=== PATIENT | female | born 1990 | race Caucasian/White ===

== ENCOUNTER 2016-10-26 06:24 | Emergency (ER) | payer OTHER ==
[~2016-10-26] VITALS: Ht 165.1 cm; Wt 64.9 kg
[~2016-10-26 06:24] MED LIST: ALBUAER19 INH; SERT-234 PO; SERT50TA PO; WLLSR150 PO
[2016-10-26 06:31] VITALS: TEMP 36.3; Ht 165.1 cm; Wt 64.9 kg
[2016-10-26] MEDS ORDERED: ONDANSETRON INJ 2 MG/ML 2 ML VIAL ONE (06:36)
[2016-10-26] MEDS ORDERED: ONDANSETRON INJ 2 MG/ML 2 ML VIAL IV STA (06:39)
[2016-10-26] MEDS ORDERED: SODIUM CHLORIDE 0.9% 1000ML 1,000 ML IV STA (06:39)
[2016-10-26] MEDS ORDERED: HYDROmorphone INJ 1 MG/ML SYR IV STA (06:39)
--- NOTE | 2016-10-26 06:52 | EMERGENCY ROOM VISIT NOTE ---
History Report prepared by Chani: Wagner Chacko Under the Supervision of: Dr. Gaston Torres M.D. First contact with patient: 06:35 Chief Complaint: FLANK PAIN Stated Complaint: EXTREME SIDE PAIN History of Present Illness The patient is a 26 year old female who presents to the Emergency Room with complaints of persistent left flank pain starting morning. The patient has a history of kidney stones but notes that her current pain is worse than she has experienced in the past. The patient also complains of nausea. The onset of her pain was sudden and her pain is currently rated 10/10 in severity. Source of History: patient Onset: this morning Position: back (left flank) Symptom Intensity: 10/10 Timing: other (persistent) Associated Symptoms: + nausea Review of Systems See HPI for pertinent positives & negatives. A total of 10 systems reviewed and were otherwise negative. Past Medical & Surgical Medical Problems: (1) Chr Ethmoidal Sinusitis (2) Hx-Penicillin Allergy (3) Urin Tract Infection Nos Family History No significant family history Social History Smoking Status: Never Smoker Alcohol Use: none Marital Status: single Housing Status: lives with family Occupation Status: employed Current/Historical Medications Scheduled Albuterol Hfa (Ventolin Hfa), 2 PUFFS INH Q4H Bupropion HCl (Bupropion HCl Sr), 150 MG PO BID Tamsulosin Hcl (Flomax), 0.4 MG PO DAILY Scheduled PRN Oxycodone/Acetaminophen 5MG/325MG (Percocet 5MG/325MG), 1-2 TAB PO Q4H PRN for Pain Allergies Coded Allergies: Penicillins (Verified Allergy, Unknown, 10/26/16) Physical Exam Vital Signs Date Time Temp Pulse Resp B/P Pulse Ox O2 Delivery O2 Flow Rate FiO2 10/26/16 10:00 75 122/79 98 10/26/16 07:33 69 18 129/88 96 Room Air 10/26/16 06:31 36.3 73 20 143/99 96 Room Air Physical Exam GENERAL: Patient is a healthy-appearing well-nourished HEAD: Normocephalic atraumatic EYES: Ocular movements intact pupils equal and react to light OROPHARYNX mucous membranes are moist no exudates present no erythema or edema present NECK: Supple no nuchal rigidity CHEST: Good equal expansion LUNGS: Clear and equal to auscultation CARDIAC: Normal S1 and S2 ABDOMEN: Soft nontender no guarding. Benign abdomen. BACK: No CVA tenderness EXTREMITIES: No pain upon palpation normal muscle strength in all groups no clubbing cyanosis or edema NEURO: Patient is following commands is answering questions appropriately. Alert and oriented x3 Cranial Nerves 2-12 grossly intact Medical Decision & Procedures ER Provider Diagnostic Interpretation: CT results as stated below per my review and radiologist interpretation: CT OF THE ABDOMEN AND PELVIS WITHOUT CONTRAST, STONE PROTOCOL CLINICAL HISTORY: Left sided back pain. Left flank pain. COMPARISON STUDY: CT of the abdomen August 11, [address] of the abdomen and pelvis May 07, 2006. TECHNIQUE: Helical axial images of the abdomen and pelvis were obtained without IV or oral contrast according to renal stone protocol. FINDINGS: Lung bases are clear. There is mild left hydroureteronephrosis. The course of the left ureter is difficult to follow but this is likely due to a 4 mm distal left ureteral calculus. There are multiple bilateral renal calculi that measure up to 4 mm. There is no right sided collecting system dilatation. Unenhanced images of the liver, spleen, adrenal glands and pancreas are normal. There is no evidence for a bowel obstruction. The appendix is normal. There is no adenopathy. No suspicious skeletal lesions are identified. IMPRESSION: 1. Mild left hydroureteronephrosis due to a 4 mm distal left ureteral calculus. 2. Bilateral nephrolithiasis. Electronically signed by: Moshe Villanueva M.D. 10/26/2016 7:52 AM Dictated Date/Time: 10/26/2016 7:47 AM Laboratory Results 10/26/16 06:40 Red Blood Count 4.41, Mean Corpuscular Volume 93.4, Mean Corpuscular Hemoglobin 32.7, Mean Corpuscular Hemoglobin Concent 35.0, Mean Platelet Volume 9.9, Neutrophils (%) (Auto) 60.4, Lymphocytes (%) (Auto) 28.9, Monocytes (%) (Auto) 8.4, Eosinophils (%) (Auto) 1.8, Basophils (%) (Auto) 0.4, Neutrophils # (Auto) 5.79, Lymphocytes # (Auto) 2.77, Monocytes # (Auto) 0.80, Eosinophils # (Auto) 0.17, Basophils # (Auto) 0.04 10/26/16 06:40 Test 10/26/16 06:40 10/26/16 08:40 White Blood Count 9.58 K/uL (4.8-10.8) Red Blood Count 4.41 M/uL (4.2-5.4) Hemoglobin 14.4 g/dL (12.0-16.0) Hematocrit 41.2 % (37-47) Mean Corpuscular Volume 93.4 fL (80-100) Mean Corpuscular Hemoglobin 32.7 pg (25-34) Mean Corpuscular Hemoglobin Concent 35.0 g/dl (32-36) Platelet Count 362 K/uL (130-400) Mean Platelet Volume 9.9 fL (7.4-10.4) Neutrophils (%) (Auto) 60.4 % Lymphocytes (%) (Auto) 28.9 % Monocytes (%) (Auto) 8.4 % Eosinophils (%) (Auto) 1.8 % Basophils (%) (Auto) 0.4 % Neutrophils # (Auto) 5.79 K/uL (1.4-6.5) Lymphocytes # (Auto) 2.77 K/uL (1.2-3.4) Monocytes # (Auto) 0.80 K/uL (0.11-0.59) Eosinophils # (Auto) 0.17 K/uL (0-0.5) Basophils # (Auto) 0.04 K/uL (0-0.2) RDW Standard Deviation 43.7 fL (36.4-46.3) RDW Coefficient of Variation 12.7 % (11.5-14.5) Immature Granulocyte % (Auto) 0.1 % Immature Granulocyte # (Auto) 0.01 K/uL (0.00-0.02) Anion Gap 9.0 mmol/L (3-11) Est Creatinine Clear Calc Drug Dose 78.1 ml/min Estimated GFR () 91.3 Estimated GFR (Non- 78.8 BUN/Creatinine Ratio 15.2 (10-20) Calcium Level 8.8 mg/dl (8.5-10.1) Total Bilirubin 0.4 mg/dl (0.2-1) Direct Bilirubin < 0.1 mg/dl (0-0.2) Aspartate Amino Transf (AST/SGOT) 13 U/L (15-37) Alanine Aminotransferase (ALT/SGPT) 20 U/L (12-78) Alkaline Phosphatase 46 U/L (45-117) Total Protein 6.7 gm/dl (6.4-8.2) Albumin 3.6 gm/dl (3.4-5.0) Lipase 95 U/L (73-393) Urine Color YELLOW Urine Appearance CLEAR (CLEAR) Urine pH 6.5 (4.5-7.5) Urine Specific [place] 1.015 (1.000-1.030) Urine Protein NEG (NEG) Urine Glucose (UA) NEG (NEG) Urine Ketones NEG (NEG) Urine Occult Blood 3+ (NEG) Urine Nitrite NEG (NEG) Urine Bilirubin NEG (NEG) Urine Urobilinogen NEG (NEG) Urine Leukocyte Esterase SMALL (NEG) Urine WBC (Auto) 1-5 /hpf (0-5) Urine RBC (Auto) >30 /hpf (0-4) Urine Hyaline Casts (Auto) 1-5 /lpf (0-5) Urine Epithelial Cells (Auto) >30 /lpf (0-5) Urine Bacteria (Auto) 1+ (NEG) Urine Renal Epithelial Cells 0-5 /lpf (0-5) Urine Test NEG (NEG) Labs reviewed by ED physician. Medications Administered Medications (Trade) Dose Ordered Sig/Nina Route Start Time Stop Time Status Last Admin Dose Admin Sodium Chloride (Nss 1000ml) 1,000 ml @ 999 mls/hr Q1H1M STAT IV 10/26/16 06:39 10/26/16 07:39 DC 10/26/16 06:43 999 MLS/HR Hydromorphone HCl (Dilaudid Inj) 1 mg NOW STAT IV 10/26/16 06:39 10/26/16 06:41 DC 10/26/16 06:43 1 MG Ondansetron HCl (Zofran Inj) 4 mg NOW STAT IV 10/26/16 06:39 10/26/16 06:41 DC 10/26/16 06:43 4 MG Tamsulosin HCl (Flomax Cap) 0.4 mg NOW ONCE PO 10/26/16 07:30 10/26/16 07:31 DC 10/26/16 07:32 0.4 MG Hydromorphone HCl (Dilaudid Inj) 0.5 mg NOW STAT IV 10/26/16 08:01 10/26/16 08:03 DC 10/26/16 08:25 0.5 MG Metoclopramide HCl (Reglan Inj) 10 mg NOW STAT IV 10/26/16 08:01 10/26/16 08:03 DC 10/26/16 08:24 10 MG Ketorolac Tromethamine (Toradol Inj) 30 mg NOW STAT IV 10/26/16 08:01 10/26/16 08:03 DC 10/26/16 08:22 30 MG Diphenhydramine HCl (Benadryl Inj) 50 mg STK-MED ONCE .ROUTE 10/26/16 08:31 10/26/16 08:34 DC 10/26/16 08:38 25 MG ED Course 0638: Past medical records reviewed. The patient was evaluated in room B2. A complete history and physical examination was performed. 0639: Zofran 4 mg IV, Dilaudid 1 mg IV, NSS 1000 ml @ 999 mls/hr. 0718: The patient is much more comfortable. 0730: Flomax 0.4 mg PO. 0801: Toradol 30 mg IV, Reglan 10 mg IV, Dilaudid 0.5 mg IV. 0905: Reassessed the pateint. I discussed results and treatment plan with the patient. She verbalizes agreement and understanding. The patient is ready for discharge. Medical Decision Prior records/ancillary studies reviewed. Triage Nursing notes reviewed. The patient's history was concerning for abdominal pain. Differential diagnosis: Etiologies such as appendicitis, diverticulitis, PUD, biliary pathology, UTI, pancreatitis, obstruction, mesenteric ischemia, aortic pathology, infections, inflammatory bowel disease, renal colic, as well as others were entertained. This is a 26-year-old female who presents emergency department vomiting and in distress. The patient has a kidney stone on CAT scan. For this reason IV was established, patient given normal saline bolus, Dilaudid, Zofran and she was also given Flomax based on the size of the stone 4 mm patient be safely discharged home for follow-up with urology. Repeat examination revealed improvement patient's symptoms. The patient was in agreement with the treatment plan. Impression Primary Impression: Kidney stone Scribe Attestation The scribe's documentation has been prepared under my direction and personally reviewed by me in its entirety. I confirm that the note above accurately reflects all work, treatment, procedures, and medical decision making performed by me. Departure Information Dispostion Home / Self-Care Prescriptions Tamsulosin Hcl (FLOMAX) 0.4 Mg Cap 0.4 MG PO DAILY for 10 Days, #10 CAP Prov: Gaston Torres MD 10/26/16 Oxycodone/Acetaminophen 5MG/325MG (PERCOCET 5MG/325MG) Tab 1-2 TAB PO Q4H Y for Pain, #14 TAB Prov: Gaston Torres MD 10/26/16 Referrals Brielle Jackson D.O. (PCP) Forms HOME CARE DOCUMENTATION FORM, IMPORTANT VISIT INFORMATION, School Instructions, Work Instructions Patient Instructions Kidney Stones - [facility], Kidney Stones Eval, Kidney Stones Expectant Therapy, Kidney Stones Prevent, Kidney Stones Risk, My [facility] Additional Instructions Take 600 mg Ibuprofen every 6 hours Take Percocet for breakthrough pain You have been examined and treated today on an emergency basis only. This is not a substitute for, or an effort to provide, complete comprehensive medical care. It is impossible to recognize and treat all injuries or illnesses in a single emergency department visit. It is therefore important that you follow up closely with [facility]. Call as soon as possible for an appointment. Thank you for your time and consideration. I look forward to speaking with you again soon. Please don't hesitate to call us if you have any questions.
[2016-10-26 06:57] LABS: BASO % 0.4 %; BASO ABS # 0.04 K/uL (0-0.2); COMPLETE YES; EOS % 1.8 %; HEMATOCRIT 41.2 % (37-47); IG% 0.1 %; LYMPH % 28.9 %; LYMPH ABS # 2.77 K/uL (1.2-3.4); MEAN CELL VOLUME 93.4 fL (80-100); MEAN CORPUSCULAR HEMOGLOBIN 32.7 pg (25-34); MEAN PLATELET VOLUME 9.9 fL (7.4-10.4); MONO % 8.4 %; NEUT % 60.4 %; PLATELET COUNT 362 K/uL (130-400); RED BLOOD COUNT 4.41 M/uL (4.2-5.4); WHITE BLOOD COUNT 9.58 K/uL (4.8-10.8)
[2016-10-26 07:16] LABS: ALT/SGPT 20 U/L (12-78); BLOOD UREA NITROGEN 15 mg/dl (7-18); BUN/CREATININE RATIO 15.2 (10-20); CALCIUM 8.8 mg/dl (8.5-10.1); CARBON DIOXIDE 25 mmol/L (21-32); CHLORIDE 108 mmol/L (98-107); GLUCOSE 103 mg/dl (70-99); POTASSIUM 3.8 mmol/L (3.5-5.1); SODIUM 142 mmol/L (136-145)
[2016-10-26 07:19] LABS: ALKALINE PHOSPHATASE 46 U/L (45-117); AST/SGOT 13 U/L (15-37)
[2016-10-26] MEDS ORDERED: VNTHFA/IN INH (07:28)
[2016-10-26] MEDS ORDERED: TAMSULOSIN HCL 0.4 MG CAP PO ONE (07:30)
--- NOTE | 2016-10-26 07:53 | DIAGNOSTIC IMAGING REPORT ---
CT OF THE ABDOMEN AND PELVIS WITHOUT CONTRAST, STONE PROTOCOL CLINICAL HISTORY: Left sided back pain. Left flank pain. COMPARISON STUDY: CT of the abdomen August 11, [address] of the abdomen and pelvis May 07, 2006. TECHNIQUE: Helical axial images of the abdomen and pelvis were obtained without IV or oral contrast according to renal stone protocol. FINDINGS: Lung bases are clear. There is mild left hydroureteronephrosis. The course of the left ureter is difficult to follow but this is likely due to a 4 mm distal left ureteral calculus. There are multiple bilateral renal calculi that measure up to 4 mm. There is no right sided collecting system dilatation. Unenhanced images of the liver, spleen, adrenal glands and pancreas are normal. There is no evidence for a bowel obstruction. The appendix is normal. There is no adenopathy. No suspicious skeletal lesions are identified. IMPRESSION: 1. Mild left hydroureteronephrosis due to a 4 mm distal left ureteral calculus. 2. Bilateral nephrolithiasis. Electronically signed by: Moshe Villanueva M.D. 10/26/2016 7:52 AM Dictated Date/Time: 10/26/2016 7:47 AM
[2016-10-26] MEDS ORDERED: METOCLOPRAMIDE HCL INJ 5 MG/ML 2 ML VIAL IV STA (08:01)
[2016-10-26] MEDS ORDERED: KETOROLAC TROMETHAMINE 30 MG/ML VIAL IV STA (08:01)
[2016-10-26] MEDS ORDERED: HYDROmorphone INJ 0.5 MG/0.5 ML SYR IV STA (08:01)
[2016-10-26] MEDS ORDERED: DiphenhydrAMINE HCL 50 MG/ML VIAL ONE (08:31)
[2016-10-26] MEDS ORDERED: NURSING VERBAL MED ORDER ONE (08:45)
[2016-10-26] MEDS ORDERED: OXYC-57 PO (09:02)
[2016-10-26] MEDS ORDERED: TAMS0.4C38 PO (09:02)
[2016-10-26 09:09] LABS: URINE APPEARANCE CLEAR (CLEAR); URINE BILIRUBIN NEG (NEG); URINE COLOR YELLOW; URINE EPITHELIAL CELL AUTO >30 /lpf (0-5); URINE NITRITE NEG (NEG); URINE PH 6.5 (4.5-7.5); URINE SPECIFIC GRAVITY 1.015 (1.000-1.030); UROBILINOGEN NEG (NEG)
[2016-10-26 09:17] LABS: MANUAL MICROSCOPIC REQUIRED? NO; REVIEW REQ? YES
[2016-10-26 10:00] VITALS: BP 122/79; PULSE 75; O2SAT 98
== END 2016-10-26 10:01 | disposition home or self-care (01) ==
LOC: C.EDB 06:25
DX: N20.0 Calculus of kidney (principal); Z87.440 Personal history of urinary (tract) infections

== ENCOUNTER 2020-03-03 13:17 | Inpatient (IN) ==
[2020-03-03 14:55] LABS: Basophils # (auto) 0.01 K/uL (0-0.2); Basophils % (auto) 0.1 %; Eosinophils # (auto) 0.06 K/uL (0-0.5); Eosinophils % (auto) 0.6 %; Hemoglobin 11.2 g/dL (12.0-16.0); Immature Granulocytes # (auto) 0.03 K/uL (0.00-0.02); Immature Granulocytes % (auto) 0.3 %; Lymphocytes # (auto) 1.02 K/uL (1.2-3.4); Lymphocytes % (auto) 10.4 %; Mean Corpuscular Hemoglobin 30.6 pg (25-34); Mean Corpuscular Hgb Conc 33.9 g/dL (32-36); Mean Corpuscular Volume 90.2 fL (80-100); Mean Platelet Volume 10.6 fL (7.4-10.4); Monocytes # (auto) 0.66 K/uL (0.11-0.59); Monocytes % (auto) 6.7 %; Neutrophils # (auto) 8.06 K/uL (1.4-6.5); Neutrophils % (auto) 81.9 %; Platelet Count 287 K/uL (130-400); RDW Coefficient of Variation 13.5 % (11.5-14.5); RDW Standard Deviation 44.5 fL (36.4-46.3); Red Blood Count 3.66 M/uL (4.2-5.4); White Blood Count 9.84 K/uL (4.8-10.8)
[2020-03-03 15:14] LABS: Albumin Level 2.2 gm/dl (3.4-5.0); BUN Creatinine Ratio 12.7 (10-20); Calcium 8.4 mg/dl (8.5-10.1); Creatinine Clr Calc Pharmacy 137.7 ml/min; Est GFR (African American) 138.6; Est GFR (Non-African American) 119.6
[2020-03-03] MEDS ORDERED: ACETAMINOPHEN 325 MG TAB PO PRN (15:16)
[2020-03-03] MEDS ORDERED: FLUOXETINE HCL 20 MG CAP PO ONE (15:16)
[2020-03-03] MEDS ORDERED: OXYTOCIN 30 UNITS/500 ML BAG IV PRN (15:16)
[2020-03-03 15:18] LABS: Albumin Globulin Ratio 0.6 (0.9-2); Bilirubin,Total 0.4 mg/dl (0.2-1); Globulin 3.6 gm/dl (2.5-4.0); Total Protein 5.8 gm/dl (6.4-8.2)
[2020-03-03 15:24] LABS: Appearance Urine Cloudy (Clear); Bacteria Urine Automated 1+ (Negative); Bilirubin Urine Negative (Negative); Blood Urine 2+ (Negative); Color Urine Dark Yellow; Epithelial Cell Urine Auto >30 /lpf (0-5); Glucose Urine UA Negative (Negative); Ketones Urine Trace (Negative); Leukocyte Esterase Urine Negative (Negative); Nitrite Urine Negative (Negative); Protein Urine 1+ (Negative); Specific Gravity Urine 1.025 (1.000-1.030); Urobilinogen Urine Negative (Negative)
--- NOTE | 2020-03-03 15:33 | History & Physical Report ---
Date of Service March 03, 2020 Assessment & Plan (1) Preeclampsia: (2) No leakage of amniotic fluid into vagina: 30 yo at 38.1 wks sent for LOF, no s/s of PROM by 2 speculum exams Elevated BP with proteinuria and mild BERMEO Normal labs, LFT/ Platelets Recommended IOL at term Cervical ripening Control BP with Labetalol Repeat labs Anticipate History of Present Illness Primary Care Provider: Brielle Jackson DO Patient is a 30 yo at 38.1 wks who was sent from office for + ROM plus testing from this morning when she reported small amount of LOF since 02/27 No gush nor trickling She had SI this morning, no LOF today No ctxs /VB +FM's Her speculum exam was negative x2, no Nitrazine no ferning DRISS was 12.3 today here at bed side Her BP's have been elevated since she presented to her L&D with protein in urine She has mild to moderate BERMEO since this morning No Change in vision/ N&V/ Epigastric nor RUQ pain Recommended IOL at term with preeclampsia with no severe features She accepted We admit her and start cervical ripening Her has been complicated by 1) GERD on pepcid 2) Anxiety: on Prozac 3) Asthma 4) Facial HZV Allergies Allergy/AdvReac Type Severity Reaction Status Date / Time Penicillins Allergy Intermediate Rash Verified 01/18/20 19:34 adhesive tape AdvReac Intermediate Rash Verified 01/18/20 19:34 Home Medications Home Medications Medication Instructions Recorded Confirmed Type albuterol sulfate [Ventolin HFA] 2 puff INHALATION Q4H PRN 08/07/19 03/03/20 History ondansetron HCl [Zofran] 4 - 8 mg PO Q6H PRN 08/07/19 03/03/20 History Lactobacillus acidophilus 10 cell PO QAM 10/04/19 03/03/20 History [Probiotic] cholecalciferol (vitamin D3) 400 unit PO QAM 10/04/19 03/03/20 History [Vitamin D3] pediatric multivitamin no.76 1 tab PO QAM 10/04/19 03/03/20 History [Flintstones Complete] famotidine [Pepcid] 20 mg PO HS 01/18/20 03/03/20 History fluoxetine [Prozac] 20 mg PO HS 01/18/20 03/03/20 History valacyclovir [Valtrex] 500 mg PO BID 03/03/20 03/03/20 History Patient History Medical History Anxiety Depression Deviated nasal septum Heart burn 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 Surgical History H/O sinus surgery 2010 S/P surgery on nasal septum 2010 [place] teeth removed Family History Other Diabetes Heart disease Hypertension Social History Preferred Language: Tu[place] Director Of Restaurant Operations Required: No Beliefs That Will Affect Care: None marital status: Single Current Living Situation: Family Current Living Situation Comment: Lives with boyfriend and his two children (4 Devonte and 2 Dk) Other Information That Helps Us Care for You: No Feels Safe at Home: Yes Safety Concerns: Feels Safe At This Time Smoking Status: Former smoker Do You Dip or Chew Tobacco: No ; Second Hand Exposure: No ; Tobacco Cessation Education Requested by Patient: No Hx Alcohol Use: No Hx Substance Use: No Review of Systems All systems reviewed & are unremarkable except as noted in HPI & below Physical Exam Constitutional: WD/WN, vitals as above well developed and + acute distress (MILD BERMEO) Gastrointestinal (Abdomen): Abd: soft, NT, gravid, no epigastric nor RUQ tenderness, [place] 7-8 lb Genitourinary: normal external appearance OB Exam Abdomen: + vertex Manual OB Exam: + cervical dilation 2 cm, + cervical effacement 50% and + station high OB Exam Monitor Tracing: + external uterine monitor used (no ctxs) and + category I Results & Data Vital Signs (Past 12 Hours) Vital Signs Temp Pulse Resp BP 03/03/20 15:20 70 132/82 03/03/20 15:05 80 142/88 H 03/03/20 14:50 81 154/94 H 03/03/20 14:31 82 148/101 H 03/03/20 14:26 84 153/104 H 03/03/20 14:22 86 149/102 H 03/03/20 14:17 78 165/97 H 03/03/20 14:11 88 148/99 H 03/03/20 14:06 96 H 140/97 03/03/20 14:01 90 135/86 03/03/20 13:56 93 H 136/91 03/03/20 13:51 93 H 140/93 03/03/20 13:46 91 H 138/93 03/03/20 13:41 92 H 142/96 H 03/03/20 13:35 100 H 143/100 H 03/03/20 13:31 37.0 C 100 H 18 150/97 H 03/03/20 13:23 100 H 150/97 H Laboratory Results Lab Results 03/03/20 03/03/20 03/03/20 Range/Units 14:43 14:43 14:43 WBC 9.84 (4.8-10.8) K/uL RBC 3.66 L (4.2-5.4) M/uL Hgb 11.2 L (12.0-16.0) g/dL Hct 33.0 L (37-47) % MCV 90.2 (80-100) fL MCH 30.6 (25-34) pg MCHC 33.9 (32-36) g/dL RDW Std Deviation 44.5 (36.4-46.3) fL RDW Coeff of [place] 13.5 (11.5-14.5) % Plt Count 287 (130-400) K/uL MPV 10.6 H (7.4-10.4) fL Immature Gran % (Auto) 0.3 % Neut % (Auto) 81.9 % Lymph % (Auto) 10.4 % [place] % (Auto) 6.7 % Eos % (Auto) 0.6 % Baso % (Auto) 0.1 % Neut # (Auto) 8.06 H (1.4-6.5) K/uL Lymph # (Auto) 1.02 L (1.2-3.4) K/uL [place] # (Auto) 0.66 H (0.11-0.59) K/uL Eos # (Auto) 0.06 (0-0.5) K/uL Baso # (Auto) 0.01 (0-0.2) K/uL Immature Gran # (Auto) 0.03 H (0.00-0.02) K/uL Sodium 140 (136-145) mmol/L Potassium 4.0 (3.5-5.1) mmol/L Chloride 112 H (98-107) mmol/L Carbon Dioxide 21 (21-32) mmol/L Anion Gap 7.0 (3-11) BUN 9 (7-18) mg/dl Creatinine 0.67 (0.6-1.2) mg/dl Est Cr Clr Drug Dosing 137.7 ml/min Est GFR ( Amer) 138.6 Est GFR (Non-Af Amer) 119.6 BUN/Creatinine Ratio 12.7 (10-20) Glucose 78 (70-99) mg/dl Calcium 8.4 L (8.5-10.1) mg/dl Total Bilirubin 0.4 (0.2-1) mg/dl AST 11 L (15-37) U/L ALT 14 (12-78) U/L Alkaline Phosphatase 152 H (45-117) U/L Lactate Dehydrogenase 166 (84-246) U/L Total Protein 5.8 L (6.4-8.2) gm/dl Albumin 2.2 L (3.4-5.0) gm/dl Globulin 3.6 (2.5-4.0) gm/dl Albumin/Globulin Ratio 0.6 L (0.9-2) Urine Color Urine Appearance (Clear) Urine pH (4.5-7.5) Ur Specific [place] (1.000-1.030) Urine Protein (Negative) Urine Glucose (UA) (Negative) Urine Ketones (Negative) Urine Blood (Negative) Urine Nitrite (Negative) Urine Bilirubin (Negative) Urine Urobilinogen (Negative) Ur Leukocyte Esterase (Negative) Urine WBC (Auto) (0-5) /hpf Urine RBC (Auto) (0-4) /hpf U Hyaline Cast (Auto) (0-5) /lpf U Epithel Cells (Auto) (0-5) /lpf Urine Bacteria (Auto) (Negative) 06/30/20 Range/Units Unknown WBC (4.8-10.8) K/uL RBC (4.2-5.4) M/uL Hgb (12.0-16.0) g/dL Hct (37-47) % MCV (80-100) fL MCH (25-34) pg MCHC (32-36) g/dL RDW Std Deviation (36.4-46.3) fL RDW Coeff of [place] (11.5-14.5) % Plt Count (130-400) K/uL MPV (7.4-10.4) fL Immature Gran % (Auto) % Neut % (Auto) % Lymph % (Auto) % [place] % (Auto) % Eos % (Auto) % Baso % (Auto) % Neut # (Auto) (1.4-6.5) K/uL Lymph # (Auto) (1.2-3.4) K/uL [place] # (Auto) (0.11-0.59) K/uL Eos # (Auto) (0-0.5) K/uL Baso # (Auto) (0-0.2) K/uL Immature Gran # (Auto) (0.00-0.02) K/uL Sodium (136-145) mmol/L Potassium (3.5-5.1) mmol/L Chloride (98-107) mmol/L Carbon Dioxide (21-32) mmol/L Anion Gap (3-11) BUN (7-18) mg/dl Creatinine (0.6-1.2) mg/dl Est Cr Clr Drug Dosing ml/min Est GFR ( Amer) Est GFR (Non-Af Amer) BUN/Creatinine Ratio (10-20) Glucose (70-99) mg/dl Calcium (8.5-10.1) mg/dl Total Bilirubin (0.2-1) mg/dl AST (15-37) U/L ALT (12-78) U/L Alkaline Phosphatase (45-117) U/L Lactate Dehydrogenase (84-246) U/L Total Protein (6.4-8.2) gm/dl Albumin (3.4-5.0) gm/dl Globulin (2.5-4.0) gm/dl Albumin/Globulin Ratio (0.9-2) Urine Color Dark Yellow Urine Appearance Cloudy A (Clear) Urine pH 6.0 (4.5-7.5) Ur Specific [place] 1.025 (1.000-1.030) Urine Protein 1+ H (Negative) Urine Glucose (UA) Negative (Negative) Urine Ketones Trace H (Negative) Urine Blood 2+ H (Negative) Urine Nitrite Negative (Negative) Urine Bilirubin Negative (Negative) Urine Urobilinogen Negative (Negative) Ur Leukocyte Esterase Negative (Negative) Urine WBC (Auto) 1-5 (0-5) /hpf Urine RBC (Auto) 5-10 H (0-4) /hpf U Hyaline Cast (Auto) 5-10 H (0-5) /lpf U Epithel Cells (Auto) >30 H (0-5) /lpf Urine Bacteria (Auto) 1+ H (Negative)
[2020-03-03] MEDS: LABETALOL HCL 100 MG TAB PO SCH ×2 (16:25→20:50)
[2020-03-03] MEDS: miSOPROStoL 50 MCG TAB PO SCH ×2 (16:25→20:49)
[2020-03-03] MEDS ORDERED: LABETALOL HCL 100 MG TAB PO ONE (17:56)
[2020-03-03] MEDS: FAMOTIDINE 20 MG TAB PO SCH (20:51)
[2020-03-03] MEDS: VALACYCLOVIR HCL 500 MG TABLET PO SCH (20:52)
[2020-03-03 21:02] LABS: Basophils # (auto) 0.02 K/uL (0-0.2); Basophils % (auto) 0.2 %; Eosinophils # (auto) 0.08 K/uL (0-0.5); Eosinophils % (auto) 0.7 %; Hematocrit (blood only) 35.4 % (37-47); Hemoglobin 11.3 g/dL (12.0-16.0); Immature Granulocytes # (auto) 0.02 K/uL (0.00-0.02); Immature Granulocytes % (auto) 0.2 %; Lymphocytes # (auto) 1.64 K/uL (1.2-3.4); Lymphocytes % (auto) 15.3 %; Mean Corpuscular Hemoglobin 29.4 pg (25-34); Mean Corpuscular Hgb Conc 31.9 g/dL (32-36); Mean Corpuscular Volume 91.9 fL (80-100); Mean Platelet Volume 10.4 fL (7.4-10.4); Monocytes % (auto) 7.5 %; Neutrophils # (auto) 8.13 K/uL (1.4-6.5); Neutrophils % (auto) 76.1 %; Platelet Count 288 K/uL (130-400); RDW Coefficient of Variation 13.6 % (11.5-14.5); RDW Standard Deviation 45.4 fL (36.4-46.3); Red Blood Count 3.85 M/uL (4.2-5.4); White Blood Count 10.69 K/uL (4.8-10.8)
[2020-03-03 21:20] LABS: Albumin Level 2.2 gm/dl (3.4-5.0); BUN Creatinine Ratio 10.9 (10-20); Calcium 8.7 mg/dl (8.5-10.1); Creatinine Clr Calc Pharmacy 111.1 ml/min; Est GFR (African American) 111.2
[2020-03-03 21:23] LABS: Albumin Globulin Ratio 0.6 (0.9-2); Bilirubin,Total 0.3 mg/dl (0.2-1); Globulin 3.6 gm/dl (2.5-4.0); Total Protein 5.8 gm/dl (6.4-8.2)
--- NOTE | 2020-03-03 22:45 | Obstetrical Progress Note ---
Date of Service March 03, 2020 Assessment & Plan Admission and Anticipated Discharge Date Admission Date: March 03, 2020 Subjective Patient is reevaluated She feels well, no more BERMEO Mild ctxs , not painful yet Took 2 doses of Cytotec BPs stable with Labetalol FHR categ I [place] ctxs q 3-4 min Repeat labs stable Continue to monitor and cervical ripening Lab Results 03/03/20 03/03/20 03/03/20 Range/Units 14:43 14:43 14:43 WBC 9.84 (4.8-10.8) K/uL RBC 3.66 L (4.2-5.4) M/uL Hgb 11.2 L (12.0-16.0) g/dL Hct 33.0 L (37-47) % MCV 90.2 (80-100) fL MCH 30.6 (25-34) pg MCHC 33.9 (32-36) g/dL RDW Std Deviation 44.5 (36.4-46.3) fL RDW Coeff of [place]an 13.5 (11.5-14.5) % Plt Count 287 (130-400) K/uL MPV 10.6 H (7.4-10.4) fL Immature Gran % (Auto) 0.3 % Neut % (Auto) 81.9 % Lymph % (Auto) 10.4 % [place] % (Auto) 6.7 % Eos % (Auto) 0.6 % Baso % (Auto) 0.1 % Neut # (Auto) 8.06 H (1.4-6.5) K/uL Lymph # (Auto) 1.02 L (1.2-3.4) K/uL [place] # (Auto) 0.66 H (0.11-0.59) K/uL Eos # (Auto) 0.06 (0-0.5) K/uL Baso # (Auto) 0.01 (0-0.2) K/uL Immature Gran # (Auto) 0.03 H (0.00-0.02) K/uL Sodium 140 (136-145) mmol/L Potassium 4.0 (3.5-5.1) mmol/L Chloride 112 H (98-107) mmol/L Carbon Dioxide 21 (21-32) mmol/L Anion Gap 7.0 (3-11) BUN 9 (7-18) mg/dl Creatinine 0.67 (0.6-1.2) mg/dl Est Cr Clr Drug Dosing 137.7 ml/min Est GFR ( Amer) 138.6 Est GFR (Non-Af Amer) 119.6 BUN/Creatinine Ratio 12.7 (10-20) Glucose 78 (70-99) mg/dl Calcium 8.4 L (8.5-10.1) mg/dl Total Bilirubin 0.4 (0.2-1) mg/dl AST 11 L (15-37) U/L ALT 14 (12-78) U/L Alkaline Phosphatase 152 H (45-117) U/L Lactate Dehydrogenase 166 (84-246) U/L Total Protein 5.8 L (6.4-8.2) gm/dl Albumin 2.2 L (3.4-5.0) gm/dl Globulin 3.6 (2.5-4.0) gm/dl Albumin/Globulin Ratio 0.6 L (0.9-2) Urine Color Urine Appearance (Clear) Urine pH (4.5-7.5) Ur Specific [place] (1.000-1.030) Urine Protein (Negative) Urine Glucose (UA) (Negative) Urine Ketones (Negative) Urine Blood (Negative) Urine Nitrite (Negative) Urine Bilirubin (Negative) Urine Urobilinogen (Negative) Ur Leukocyte Esterase (Negative) Urine WBC (Auto) (0-5) /hpf Urine RBC (Auto) (0-4) /hpf U Hyaline Cast (Auto) (0-5) /lpf U Epithel Cells (Auto) (0-5) /lpf Urine Bacteria (Auto) (Negative) 03/03/20 03/03/20 03/03/20 Range/Units 20:53 20:53 Unknown WBC 10.69 (4.8-10.8) K/uL RBC 3.85 L (4.2-5.4) M/uL Hgb 11.3 L (12.0-16.0) g/dL Hct 35.4 L (37-47) % MCV 91.9 (80-100) fL MCH 29.4 (25-34) pg MCHC 31.9 L (32-36) g/dL RDW Std Deviation 45.4 (36.4-46.3) fL RDW Coeff of [place] 13.6 (11.5-14.5) % Plt Count 288 (130-400) K/uL MPV 10.4 (7.4-10.4) fL Immature Gran % (Auto) 0.2 % Neut % (Auto) 76.1 % Lymph % (Auto) 15.3 % [place] % (Auto) 7.5 % Eos % (Auto) 0.7 % Baso % (Auto) 0.2 % Neut # (Auto) 8.13 H (1.4-6.5) K/uL Lymph # (Auto) 1.64 (1.2-3.4) K/uL [place] # (Auto) 0.80 H (0.11-0.59) K/uL Eos # (Auto) 0.08 (0-0.5) K/uL Baso # (Auto) 0.02 (0-0.2) K/uL Immature Gran # (Auto) 0.02 (0.00-0.02) K/uL Sodium 138 (136-145) mmol/L Potassium 4.0 (3.5-5.1) mmol/L Chloride 110 H (98-107) mmol/L Carbon Dioxide 21 (21-32) mmol/L Anion Gap 7.0 (3-11) BUN 9 (7-18) mg/dl Creatinine 0.83 (0.6-1.2) mg/dl Est Cr Clr Drug Dosing 111.1 ml/min Est GFR ( Amer) 111.2 Est GFR (Non-Af Amer) 96.0 BUN/Creatinine Ratio 10.9 (10-20) Glucose 81 (70-99) mg/dl Calcium 8.7 (8.5-10.1) mg/dl Total Bilirubin 0.3 (0.2-1) mg/dl AST 14 L (15-37) U/L ALT 13 (12-78) U/L Alkaline Phosphatase 151 H (45-117) U/L Lactate Dehydrogenase (84-246) U/L Total Protein 5.8 L (6.4-8.2) gm/dl Albumin 2.2 L (3.4-5.0) gm/dl Globulin 3.6 (2.5-4.0) gm/dl Albumin/Globulin Ratio 0.6 L (0.9-2) Urine Color Dark Yellow Urine Appearance Cloudy A (Clear) Urine pH 6.0 (4.5-7.5) Ur Specific [place] 1.025 (1.000-1.030) Urine Protein 1+ H (Negative) Urine Glucose (UA) Negative (Negative) Urine Ketones Trace H (Negative) Urine Blood 2+ H (Negative) Urine Nitrite Negative (Negative) Urine Bilirubin Negative (Negative) Urine Urobilinogen Negative (Negative) Ur Leukocyte Esterase Negative (Negative) Urine WBC (Auto) 1-5 (0-5) /hpf Urine RBC (Auto) 5-10 H (0-4) /hpf U Hyaline Cast (Auto) 5-10 H (0-5) /lpf U Epithel Cells (Auto) >30 H (0-5) /lpf Urine Bacteria (Auto) 1+ H (Negative) Results [facility]) Vital Signs (Past 12 Hours) Vital Signs Temp Pulse Resp BP 03/03/20 22:39 74 143/84 H 03/03/20 22:08 80 140/97 03/03/20 21:50 73 147/88 H 03/03/20 21:21 80 136/86 03/03/20 21:06 69 129/84 03/03/20 20:50 107 H 138/87 03/03/20 20:35 68 136/86 03/03/20 20:21 73 139/86 03/03/20 20:05 77 152/97 H 03/03/20 19:50 89 151/95 H 03/03/20 19:37 37.0 C 81 18 154/99 H 03/03/20 19:35 81 154/99 H 03/03/20 19:20 72 127/79 03/03/20 19:05 71 137/86 03/03/20 18:50 74 146/85 H 03/03/20 18:35 78 158/100 H 03/03/20 18:25 81 160/99 H 03/03/20 18:23 71 165/100 H 03/03/20 18:05 78 157/102 H 03/03/20 17:51 75 160/101 H 03/03/20 17:35 78 153/103 H 03/03/20 17:20 79 155/105 H 03/03/20 16:50 75 144/85 H 03/03/20 16:35 77 152/100 H 03/03/20 16:20 71 143/93 H 03/03/20 16:05 85 164/97 H 03/03/20 15:35 86 143/105 H 03/03/20 15:20 70 132/82 03/03/20 15:05 80 142/88 H 03/03/20 14:50 81 154/94 H 03/03/20 14:31 82 148/101 H 03/03/20 14:26 84 153/104 H 03/03/20 14:22 86 149/102 H 03/03/20 14:17 78 165/97 H 03/03/20 14:11 88 148/99 H 03/03/20 14:06 96 H 140/97 03/03/20 14:01 90 135/86 03/03/20 13:56 93 H 136/91 03/03/20 13:51 93 H 140/93 03/03/20 13:46 91 H 138/93 03/03/20 13:41 92 H 142/96 H 03/03/20 13:35 100 H 143/100 H 03/03/20 13:31 37.0 C 100 H 18 150/97 H 03/03/20 13:23 100 H 150/97 H
[2020-03-04] MEDS: miSOPROStoL 50 MCG TAB PO SCH (00:05)
[2020-03-04] MEDS: LABETALOL HCL 100 MG TAB PO SCH (08:22)
[2020-03-04] MEDS: VALACYCLOVIR HCL 500 MG TABLET PO SCH ×2 (08:22→22:36)
[2020-03-04] MEDS: LACTATED RINGER'S 1,000 ML IV PRN ×3 (09:35→21:22)
[2020-03-04] MEDS ORDERED: OXYTOCIN 30 UNITS/500 ML BAG IV PRN ×2 (09:46→22:03)
--- NOTE | 2020-03-04 09:46 | Obstetrical Progress Note ---
Date of Service March 04, 2020 Assessment & Plan Admission and Anticipated Discharge Date Admission Date: March 03, 2020 Subjective Met pt and spouse reviewed admission pt has received 3 Cytotec in the last 24 hrs FHR; CAY1 Ctx; Minimal VE; 1-2/50/-3 Jhaveri bulb placed with 3o cc saline pt tolerated procedure well will start Pitocin pt is agreeable to plan Results & Data ([facility]) Vital Signs (Past 12 Hours) Vital Signs Temp Pulse Resp BP 03/04/20 09:33 81 162/93 H 03/04/20 09:11 83 137/81 03/04/20 07:41 75 152/87 H 03/04/20 07:12 70 138/85 03/04/20 06:27 76 126/71 03/04/20 05:42 72 126/76 03/04/20 04:44 83 127/85 03/04/20 02:51 77 144/91 H 03/04/20 01:39 36.8 C 68 18 136/84 03/04/20 01:09 66 146/89 H 03/04/20 00:39 72 144/81 H 03/04/20 00:09 82 139/66 03/03/20 23:08 36.9 C 72 18 144/96 H 03/03/20 22:39 74 143/84 H 03/03/20 22:08 80 140/97 03/03/20 21:50 73 147/88 H
[2020-03-04] MEDS: LABETALOL HCL 200 MG TAB PO SCH (15:32)
[2020-03-04] MEDS ORDERED: fentaNYL citrate 100 MCG/2 ML VIAL ONE (17:11)
[2020-03-04] MEDS ORDERED: ePHEDrine sulfate 50 MG/ML AMP ONE (17:11)
[2020-03-04] MEDS ORDERED: BUPIVACAINE 0.25% 30 ML VIAL ONE (17:11)
[2020-03-04] MEDS ORDERED: fentaNYL 2MCG/ML ROPIV 1.25MG/ML 100 ML BAG EPI ONE (17:12)
--- NOTE | 2020-03-04 17:57 | Anesthesiology Consultation ---
Date of Service March 04, 2020 Assessment & Plan Chart Review Chart Review: Acceptable Risk for Labor Epidural Consults Requested none History Height/Weight Height: 5 ft 5 in Weight: 88.904 kg Allergies Allergy/AdvReac Type Severity Reaction Status Date / Time Penicillins Allergy Intermediate Rash Verified 03/03/20 23:32 adhesive tape AdvReac Intermediate Rash Verified 03/03/20 23:32 Medications Home Medications Medication Instructions Recorded Confirmed Last Taken albuterol sulfate [Ventolin HFA] 2 puff INHALATION Q4H PRN 08/07/19 03/03/20 01/11/20 02:00 ondansetron HCl [Zofran] 4 - 8 mg PO Q6H PRN 08/07/19 03/03/20 01/18/20 07:00 Lactobacillus acidophilus 10 cell PO QAM 10/04/19 03/03/20 03/02/20 21:00 [Probiotic] cholecalciferol (vitamin D3) 400 unit PO QAM 10/04/19 03/03/20 03/02/20 21:00 [Vitamin D3] pediatric multivitamin no.76 1 tab PO QAM 10/04/19 03/03/20 03/02/20 21:00 [Flintstones Complete] famotidine [Pepcid] 20 mg PO HS 01/18/20 03/03/20 03/02/20 21:00 fluoxetine [Prozac] 20 mg PO HS 01/18/20 03/03/20 03/02/20 22:00 valacyclovir [Valtrex] 500 mg PO BID 03/03/20 03/03/20 03/03/20 09:00 Active Medications Generic Name Dose Route Start Last Admin Trade Name Freq PRN Reason Stop Dose Admin Famotidine 20 mg 03/03/20 21:00 03/03/20 20:51 Pepcid PO 04/02/20 20:59 20 mg HS JOVANNY Administration Lactated Ringer's 1,000 mls @ 125 mls/hr 03/03/20 15:16 03/04/20 17:32 Lr IV 03/05/20 15:15 125 mls/hr .Q8H PRN Infusion L&D Protocol Protocol Oxytocin 30 units in 500 mls @ 14 mls/hr 03/04/20 09:46 03/04/20 14:30 Pitocin IV 03/06/20 09:45 0.84 units/hr .Q24H PRN 14 mls/hr Labor Induction/Augmentation Titration Protocol 0.84 UNITS/HR Labetalol HCl 200 mg 03/04/20 15:30 03/04/20 15:32 Normodyne PO 04/03/20 15:29 200 mg Q12H JOVANNY Administration Misoprostol 50 mcg 03/03/20 16:00 03/04/20 00:05 Cytotec PO 04/02/20 15:59 50 mcg Q4 JOVANNY Administration Valacyclovir HCl 500 mg 03/03/20 21:00 03/04/20 08:22 Valtrex PO 03/10/20 20:59 500 mg BID JOVANNY Administration Past Medical History Medical History Anxiety Depression Deviated nasal septum Heart burn 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 Past Family History Family History Other Diabetes Heart disease Hypertension Past Surgical History Surgical History H/O sinus surgery 2010 S/P surgery on nasal septum 2011 [place] teeth removed Social History Smoking Status: Former smoker Do You Dip or Chew Tobacco: No Hx Alcohol Use: No Hx Substance Use: No Physical Exam Vital Signs Last Vital Signs Temp 36.9 C 03/04/20 11:05 Pulse 87 03/04/20 17:52 Resp 18 03/04/20 11:05 BP 147/103 H 03/04/20 17:50 Pulse Ox 97 03/04/20 17:52 Testing Laboratory Results 03/03/20 20:53 03/03/20 20:53 Urine Color Dark Yellow 03/03/20 Unknown Urine Appearance Cloudy (Clear) A 03/03/20 Unknown Urine pH 6.0 (4.5-7.5) 03/03/20 Unknown Ur Specific [place] 1.025 (1.000-1.030) 03/03/20 Unknown Urine Protein 1+ (Negative) H 03/03/20 Unknown Urine Glucose (UA) Negative (Negative) 03/03/20 Unknown Urine Ketones Trace (Negative) H 03/03/20 Unknown Urine Nitrite Negative (Negative) 03/03/20 Unknown Ur Leukocyte Esterase Negative (Negative) 03/03/20 Unknown Urine WBC (Auto) 1-5 /hpf (0-5) 03/03/20 Unknown Urine RBC (Auto) 5-10 /hpf (0-4) H 03/03/20 Unknown U Hyaline Cast (Auto) 5-10 /lpf (0-5) H 03/03/20 Unknown U Epithel Cells (Auto) >30 /lpf (0-5) H 03/03/20 Unknown Urine Bacteria (Auto) 1+ (Negative) H 03/03/20 Unknown
[2020-03-04] MEDS ORDERED: fentaNYL 2MCG/ML ROPIV 1.25MG/ML 100 ML BAG EPI PRN (17:59)
[2020-03-04] MEDS ORDERED: NALOXONE HCL 0.4 MG/1 ML VIAL/CARP IV PRN (17:59)
[2020-03-04] MEDS ORDERED: DiphenhydrAMINE HCL 50 MG/ML VIAL IV PRN (17:59)
[2020-03-04] MEDS ORDERED: NALOXONE HCL 1 MG in SODIUM CHLORIDE 0.9% 1000ML 1,000 ML IV PRN (17:59)
[2020-03-04] MEDS ORDERED: ePHEDrine sulfate 50 MG/ML AMP IV PRN (17:59)
--- NOTE | 2020-03-04 18:49 | Obstetrical Progress Note ---
Date of Service March 04, 2020 Assessment & Plan Admission and Anticipated Discharge Date Admission Date: March 03, 2020 Subjective Pt doing well Stable BP on labetalol no headache, SOB or RUQ pain FHR; CAT1 Ctx; 2-4mins Pitocin; 16MU VE 4/90/-2 AROM with amnio hook - clear amniotic fluid Plan; continue with induction of labor Results & Data ([facility]) Vital Signs (Past 12 Hours) Vital Signs Temp Pulse Resp BP Pulse Ox 03/04/20 18:43 70 94 03/04/20 18:42 71 98 03/04/20 18:41 69 18 146/95 H 03/04/20 18:37 72 136/95 98 03/04/20 18:32 75 136/91 96 03/04/20 18:27 68 18 143/85 H 95 03/04/20 18:22 66 138/84 96 03/04/20 18:17 70 95 03/04/20 18:16 70 142/85 H 03/04/20 18:12 77 96 03/04/20 18:11 69 16 132/83 03/04/20 18:07 70 95 03/04/20 18:06 68 142/89 H 03/04/20 18:02 70 142/90 H 95 03/04/20 17:58 81 138/65 03/04/20 17:57 97 H 97 03/04/20 17:56 18 03/04/20 17:53 18 03/04/20 17:52 87 97 03/04/20 17:50 84 18 147/103 H 03/04/20 17:48 80 141/97 H 03/04/20 17:47 86 97 03/04/20 17:46 78 142/95 H 03/04/20 17:44 77 135/94 03/04/20 17:42 79 145/100 H 98 03/04/20 17:40 82 150/105 H 03/04/20 17:38 74 143/99 H 03/04/20 17:37 78 98 03/04/20 17:36 84 141/98 H 03/04/20 17:34 90 147/103 H 03/04/20 17:32 82 98 03/04/20 17:30 83 148/101 H 03/04/20 17:27 85 99 03/04/20 16:57 71 166/103 H 07/01/20 16:35 71 140/96 03/04/20 15:56 69 153/102 H 03/04/20 15:13 69 161/98 H 03/04/20 15:07 75 163/105 H 03/04/20 14:37 82 148/101 H 03/04/20 14:13 77 159/100 H 03/04/20 13:13 80 121/81 03/04/20 12:13 75 131/82 03/04/20 11:20 74 141/81 H 03/04/20 11:05 36.9 C 69 18 138/84 03/04/20 10:12 68 139/102 H 03/04/20 09:33 81 162/93 H 03/04/20 09:11 83 137/81 03/04/20 07:41 75 152/87 H 03/04/20 07:12 70 138/85
--- NOTE | 2020-03-04 20:17 | Obstetrical Progress Note ---
Date of Service March 04, 2020 Assessment & Plan Admission and Anticipated Discharge Date Admission Date: March 03, 2020 Subjective Pt doing well FHR; CAT1 Ctx 1-2 mins On pitocin AROM VE' station anticipate VD Results & Data ([facility]) Vital Signs (Past 12 Hours) Vital Signs Temp Pulse Resp BP Pulse Ox 03/04/20 20:12 76 176/104 H 97 03/04/20 20:07 83 98 03/04/20 20:02 84 98 03/04/20 19:58 92 H 166/94 H 03/04/20 19:57 93 H 97 03/04/20 19:55 82 92 03/04/20 19:52 94 H 98 03/04/20 19:47 86 97 03/04/20 19:42 72 149/94 H 98 03/04/20 19:37 74 96 03/04/20 19:36 74 93 03/04/20 19:32 87 98 03/04/20 19:27 85 98 03/04/20 19:26 81 154/105 H 03/04/20 19:23 103 H 92 03/04/20 19:22 83 148/95 H 98 03/04/20 19:17 79 140/96 98 03/04/20 19:15 36.9 C 18 03/04/20 19:12 66 97 03/04/20 19:11 71 153/99 H 03/04/20 19:07 68 97 03/04/20 19:06 71 138/94 03/04/20 19:02 65 97 03/04/20 19:01 68 146/95 H 03/04/20 18:57 75 16 97 03/04/20 18:56 86 145/94 H 03/04/20 18:52 68 96 03/04/20 18:51 70 141/91 H 03/04/20 18:47 73 97 03/04/20 18:46 72 144/93 H 03/04/20 18:43 70 94 03/04/20 18:42 71 98 03/04/20 18:41 69 18 146/95 H 03/04/20 18:37 72 136/95 98 03/04/20 18:32 75 136/91 96 03/04/20 18:27 68 18 143/85 H 95 03/04/20 18:22 66 138/84 96 07/01/20 18:17 70 95 03/04/20 18:16 70 142/85 H 03/04/20 18:12 77 96 07 18:11 69 16 132/83 03/04/20 18:07 70 95 03/04/20 18:06 68 142/89 H 03/04/20 18:02 70 142/90 H 95 03/04/20 17:58 81 138/65 03/04/20 17:57 97 H 97 03/04/20 17:56 18 03/04/20 17:53 18 03/04/20 17:52 87 97 03/04/20 17:50 84 18 147/103 H 03/04/20 17:48 80 141/97 H 03/04/20 17:47 86 97 03/04/20 17:46 78 142/95 H 03/04/20 17:44 77 135/94 03/04/20 17:42 79 145/100 H 98 03/04/20 17:40 82 150/105 H 03/04/20 17:38 74 143/99 H 03/04/20 17:37 78 98 03/04/20 17:36 84 141/98 H 03/04/20 17:34 90 147/103 H 03/04/20 17:32 82 98 03/04/20 17:30 83 148/101 H 03/04/20 17:27 85 99 03/04/20 16:57 71 166/103 H 03/04/20 16:35 71 140/96 03/04/20 15:56 69 153/102 H 03/04/20 15:13 69 161/98 H 03/04/20 15:07 75 163/105 H 03/04/20 14:37 82 148/101 H 03/04/20 14:13 77 159/100 H 03/04/20 13:13 80 121/81 03/04/20 12:13 75 131/82 03/04/20 11:20 74 141/81 H 03/04/20 11:05 36.9 C 69 18 138/84 03/04/20 10:12 68 139/102 H 03/04/20 09:33 81 162/93 H 03/04/20 09:11 83 137/81
[2020-03-04] MEDS ORDERED: LABETALOL HCL 200 MG TAB PO SCH (21:00)
[2020-03-04] MEDS ORDERED: METHYLERGONOVINE MALEATE 0.2 MG/ML AMP ONE (21:17)
[2020-03-04] MEDS ORDERED: CARBOPROST TROMETHAMINE 250 MCG/ML AMPUL ONE (21:17)
[2020-03-04] MEDS ORDERED: ACETAMINOPHEN 325 MG TAB PO PRN (22:03)
[2020-03-04] MEDS ORDERED: bisacodyL 10 MG SUPP PR PRN (22:03)
[2020-03-04] MEDS ORDERED: HYDROCORTISONE ACETATE 25 MG SUPP PR PRN (22:03)
[2020-03-04] MEDS ORDERED: miSOPROStoL 200 MCG TAB PR ONE (22:03)
[2020-03-04] MEDS ORDERED: DIPHTHERIA/TETANUS/PERTUSSIS 0.5 ML SYR/VIAL IM ONE (22:03)
[2020-03-04] MEDS ORDERED: BENZOCAINE 20% AER SPR 82.5 GM CAN EXT PRN (22:03)
[2020-03-04] MEDS ORDERED: ONDANSETRON INJ 2 MG/ML 2 ML VIAL IV PRN (22:03)
[2020-03-04] MEDS ORDERED: SUPERCREAM 0.870% 15 GM JAR EXT PRN (22:03)
[2020-03-04] MEDS ORDERED: METHYLERGONOVINE MALEATE 0.2 MG/ML AMP IM ONE (22:03)
[2020-03-04] MEDS ORDERED: CARBOPROST TROMETHAMINE 250 MCG/ML AMPUL IM ONE (22:03)
[2020-03-04] MEDS ORDERED: OXYTOCIN 20 UNITS in LACTATED RINGER'S 1,000 ML IV SCH (22:15)
[2020-03-04] MEDS ORDERED: OXYTOCIN 30 UNITS/500 ML BAG IV SCH (22:15)
[2020-03-04 22:18] LABS: Base Excess Cord Arterial Bld -6.3 mEq/L (-9-1.8); Base Excess Cord Venous Blood -5.1 mEq/L (-7.7-1.9); CO2 Cord Arterial Blood 55 mmHg (39.1-73.5); Cord Venous Blood HCO3 20 mmol/L (18.4-26.8); Cord Venous Blood PCO2 38 mmHg (30.4-57.2); Cord Venous Blood PO2 36 mmHg (14.1-43.3); Cord Venous Blood pH 7.34 (7.20-7.44); HCO3 Cord Arterial Blood 22 mmol/L (19.7-28.5); Oxygen Sat Cord Arterial Blood < 60.0 % (<60); PO2 Cord Arterial Blood 28 mmHg (4.1-31.7); pH Cord Arterial Blood 7.22 (7.1-7.38)
[2020-03-04 22:31] LABS: Hematocrit (blood only) 37.1 % (37-47)
[2020-03-04] MEDS: FLUOXETINE HCL 20 MG CAP PO SCH (22:36)
[2020-03-04] MEDS: FAMOTIDINE 20 MG TAB PO SCH (22:36)
--- NOTE | 2020-03-04 23:50 | Delivery Summary ---
DATE OF OPERATION: 03/04/2020 DELIVERY NOTE The patient delivered a live in left occiput anterior presentation. There was no nuchal cord. was delivered, placed on mother's abdomen. Delayed cord clamp was performed after 1 minute. Cord blood and cord gas was obtained. Placenta was spontaneously delivered. Examination of the placenta showed grossly normal looking placenta. The patient began to have excessive bleeding and uterine massage was performed as well as a cervical massage. She received Cytotec and Hemabate as well as Pitocin. Inspection of the perineum showed no laceration of the perineum, cervix was inspected as well. The bleeding appeared to be from uterine atony. The uterus was continuously massaged while fluids and medications were given. Hemostasis was obtained. The patient was observed at bedside for 45 more minutes. A Jhaveri catheter was inserted into the bladder. There was only 50 mL of urine from the bladder. The patient became hemodynamically stable. We will continue to watch the patient in recovery. All instruments were removed from the vagina including retractors, sponges and accounted for x2. The patient is presently stable in recovery with baby. I attest to the content of the Intraoperative Record and any orders documented therein. Any exception s are noted below.
--- NOTE | 2020-03-05 03:48 | Anesthesia Procedure Note ---
Date of Service March 05, 2020 Anesthesia Post Epidural Note Vital Signs Vital Signs: Temp Pulse Resp BP Pulse Ox 37 C 79 18 114/96 94 03/05/20 02:20 03/05/20 02:20 03/05/20 02:20 03/05/20 02:20 03/04/20 22:07 Pain Intensity Bilateral Lower Abdomen: Pain Intensity: 1 Notes Mental Status: alert / awake / arousable Nausea / Vomiting: adequately controlled Pain: adequately controlled Airway Patency, RR, SpO2: stable & adequate BP & HR: stable & adequate Hydration State: stable & adequate Neuraxial Anesthesia: was administered and sensory block is resolving Anesthetic Complications: no major complications apparent and Pt Satisfied with anesthetic care Epidural: Removed without complications and With tip intact
[2020-03-05] MEDS: LABETALOL HCL 200 MG TAB PO SCH ×2 (03:56→17:06)
[2020-03-05 07:01] LABS: Hematocrit (blood only) 30.2 % (37-47); Hemoglobin 9.9 g/dL (12.0-16.0); Mean Corpuscular Hgb Conc 32.8 g/dL (32-36); Mean Corpuscular Volume 91.5 fL (80-100); Mean Platelet Volume 10.7 fL (7.4-10.4); Platelet Count 251 K/uL (130-400); RDW Coefficient of Variation 13.7 % (11.5-14.5); RDW Standard Deviation 45.4 fL (36.4-46.3); White Blood Count 14.27 K/uL (4.8-10.8)
[2020-03-05] MEDS: PRENATAL VITAMIN 1 TAB PO SCH (08:34)
[2020-03-05] MEDS: VALACYCLOVIR HCL 500 MG TABLET PO SCH ×2 (08:34→20:14)
[2020-03-05] MEDS: IBUPROFEN 600 MG TAB PO PRN ×4 (08:35→23:26)
[2020-03-05] MEDS: DOCUSATE SODIUM 100 MG CAP PO SCH ×2 (08:35→20:14)
--- NOTE | 2020-03-05 11:14 | Obstetrical Progress Note ---
Date of Service March 05, 2020 Assessment & Plan Admission and Anticipated Discharge Date Admission Date: March 03, 2020 Subjective doing ok no dizziness or SOB Physical Exam Constitutional: WD/WN, vitals as above comfortable abdomen soft and non- tender uterus firm minimal lochia no edema neg Rob's Results & Data ([facility]) Vital Signs (Past 12 Hours) Vital Signs Temp Pulse Pulse Resp BP BP 03/05/20 05:35 37.3 C 87 18 133/85 03/05/20 02:20 37 C 79 18 114/96 03/05/20 00:59 82 153/81 H 03/05/20 00:44 82 152/67 H 03/05/20 00:30 87 156/70 H 03/05/20 00:00 18 03/04/20 23:59 80 146/95 H 03/04/20 23:44 80 145/98 H 03/04/20 23:30 18 03/04/20 23:29 71 141/92 H 03/04/20 23:14 82 140/101 H 03/04/20 23:00 18 03/04/20 22:59 82 172/104 H 03/04/20 22:48 64 149/100 H 03/04/20 22:45 18 Laboratory Results Laboratory Results - last 48 hr 03/03/20 03/03/20 03/03/20 14:43 14:43 14:43 WBC 9.84 RBC 3.66 L Hgb 11.2 L Hct 33.0 L MCV 90.2 MCH 30.6 MCHC 33.9 RDW Std Deviation 44.5 RDW Coeff of [place] 13.5 Plt Count 287 MPV 10.6 H Immature Gran % (Auto) 0.3 Neut % (Auto) 81.9 Lymph % (Auto) 10.4 [place] % (Auto) 6.7 Eos % (Auto) 0.6 Baso % (Auto) 0.1 Neut # (Auto) 8.06 H Lymph # (Auto) 1.02 L [place] # (Auto) 0.66 H Eos # (Auto) 0.06 Baso # (Auto) 0.01 Immature Gran # (Auto) 0.03 H Cord ABG pH Cord ABG pCO2 Cord ABG pO2 Cord ABG HCO3 Cord ABG Base Excess Cord ABG O2 Sat Cord VBG pH Cord VBG pCO2 Cord VBG pO2 Cord VBG HCO3 Cord VBG Base Excess Cord VBG O2 Sat Barometric Pressure Blood Gas Comments Sodium 140 Potassium 4.0 Chloride 112 H Carbon Dioxide 21 Anion Gap 7.0 BUN 9 Creatinine 0.67 Est Cr Clr Drug Dosing 137.7 Est GFR ( Amer) 138.6 Est GFR (Non-Af Amer) 119.6 BUN/Creatinine Ratio 12.7 Glucose 78 Calcium 8.4 L Total Bilirubin 0.4 AST 11 L ALT 14 Alkaline Phosphatase 152 H Lactate Dehydrogenase 166 Total Protein 5.8 L Albumin 2.2 L Globulin 3.6 Albumin/Globulin Ratio 0.6 L Urine Color Urine Appearance Urine pH Ur Specific [place] Urine Protein Urine Glucose (UA) Urine Ketones Urine Blood Urine Nitrite Urine Bilirubin Urine Urobilinogen Ur Leukocyte Esterase Urine WBC (Auto) Urine RBC (Auto) U Hyaline Cast (Auto) U Epithel Cells (Auto) Urine Bacteria (Auto) 03/03/20 03/03/20 03/03/20 20:53 20:53 Unknown WBC 10.69 RBC 3.85 L Hgb 11.3 L Hct 35.4 L MCV 91.9 MCH 29.4 MCHC 31.9 L RDW Std Deviation 45.4 RDW Coeff of [place] 13.6 Plt Count 288 MPV 10.4 Immature Gran % (Auto) 0.2 Neut % (Auto) 76.1 Lymph % (Auto) 15.3 [place] % (Auto) 7.5 Eos % (Auto) 0.7 Baso % (Auto) 0.2 Neut # (Auto) 8.13 H Lymph # (Auto) 1.64 [place] # (Auto) 0.80 H Eos # (Auto) 0.08 Baso # (Auto) 0.02 Immature Gran # (Auto) 0.02 Cord ABG pH Cord ABG pCO2 Cord ABG pO2 Cord ABG HCO3 Cord ABG Base Excess Cord ABG O2 Sat Cord VBG pH Cord VBG pCO2 Cord VBG pO2 Cord VBG HCO3 Cord VBG Base Excess Cord VBG O2 Sat Barometric Pressure Blood Gas Comments Sodium 138 Potassium 4.0 Chloride 110 H Carbon Dioxide 21 Anion Gap 7.0 BUN 9 Creatinine 0.83 Est Cr Clr Drug Dosing 111.1 Est GFR ( Amer) 111.2 Est GFR (Non-Af Amer) 96.0 BUN/Creatinine Ratio 10.9 Glucose 81 Calcium 8.7 Total Bilirubin 0.3 AST 14 L ALT 13 Alkaline Phosphatase 151 H Lactate Dehydrogenase Total Protein 5.8 L Albumin 2.2 L Globulin 3.6 Albumin/Globulin Ratio 0.6 L Urine Color Dark Yellow Urine Appearance Cloudy A Urine pH 6.0 Ur Specific [place] 1.025 Urine Protein 1+ H Urine Glucose (UA) Negative Urine Ketones Trace H Urine Blood 2+ H Urine Nitrite Negative Urine Bilirubin Negative Urine Urobilinogen Negative Ur Leukocyte Esterase Negative Urine WBC (Auto) 1-5 Urine RBC (Auto) 5-10 H U Hyaline Cast (Auto) 5-10 H U Epithel Cells (Auto) >30 H Urine Bacteria (Auto) 1+ H 03/04/20 03/04/20 03/04/20 21:05 21:05 22:21 WBC RBC Hgb 12.0 Hct 37.1 MCV MCH MCHC RDW Std Deviation RDW Coeff of Rowan Plt Count MPV Immature Gran % (Auto) Neut % (Auto) Lymph % (Auto) [place] % (Auto) Eos % (Auto) Baso % (Auto) Neut # (Auto) Lymph # (Auto) [place] # (Auto) Eos # (Auto) Baso # (Auto) Immature Gran # (Auto) Cord ABG pH 7.22 Cord ABG pCO2 55 Cord ABG pO2 28 Cord ABG HCO3 22 Cord ABG Base Excess -6.3 Cord ABG O2 Sat < 60.0 Cord VBG pH 7.34 Cord VBG pCO2 38 Cord VBG pO2 36 Cord VBG HCO3 20 Cord VBG Base Excess -5.1 Cord VBG O2 Sat 74.0 H Barometric Pressure 730.0 729.9 Blood Gas Comments CRUMP CRUMP Sodium Potassium Chloride Carbon Dioxide Anion Gap BUN Creatinine Est Cr Clr Drug Dosing Est GFR ( Amer) Est GFR (Non-Af Amer) BUN/Creatinine Ratio Glucose Calcium Total Bilirubin AST ALT Alkaline Phosphatase Lactate Dehydrogenase Total Protein Albumin Globulin Albumin/Globulin Ratio Urine Color Urine Appearance Urine pH Ur Specific [place] Urine Protein Urine Glucose (UA) Urine Ketones Urine Blood Urine Nitrite Urine Bilirubin Urine Urobilinogen Ur Leukocyte Esterase Urine WBC (Auto) Urine RBC (Auto) U Hyaline Cast (Auto) U Epithel Cells (Auto) Urine Bacteria (Auto) 03/05/20 06:39 WBC 14.27 H RBC 3.30 L Hgb 9.9 L Hct 30.2 L MCV 91.5 MCH 30.0 MCHC 32.8 RDW Std Deviation 45.4 RDW Coeff of [place] 13.7 Plt Count 251 MPV 10.7 H Immature Gran % (Auto) Neut % (Auto) Lymph % (Auto) [place] % (Auto) Eos % (Auto) Baso % (Auto) Neut # (Auto) Lymph # (Auto) [place] # (Auto) Eos # (Auto) Baso # (Auto) Immature Gran # (Auto) Cord ABG pH Cord ABG pCO2 Cord ABG pO2 Cord ABG HCO3 Cord ABG Base Excess Cord ABG O2 Sat Cord VBG pH Cord VBG pCO2 Cord VBG pO2 Cord VBG HCO3 Cord VBG Base Excess Cord VBG O2 Sat Barometric Pressure Blood Gas Comments Sodium Potassium Chloride Carbon Dioxide Anion Gap BUN Creatinine Est Cr Clr Drug Dosing Est GFR ( Amer) Est GFR (Non-Af Amer) BUN/Creatinine Ratio Glucose Calcium Total Bilirubin AST ALT Alkaline Phosphatase Lactate Dehydrogenase Total Protein Albumin Globulin Albumin/Globulin Ratio Urine Color Urine Appearance Urine pH Ur Specific [place] Urine Protein Urine Glucose (UA) Urine Ketones Urine Blood Urine Nitrite Urine Bilirubin Urine Urobilinogen Ur Leukocyte Esterase Urine WBC (Auto) Urine RBC (Auto) U Hyaline Cast (Auto) U Epithel Cells (Auto) Urine Bacteria (Auto)
[2020-03-05] MEDS ORDERED: bisacodyL 5 MG TABEC PO SCH (20:00)
[2020-03-05] MEDS: FLUOXETINE HCL 20 MG CAP PO SCH (20:14)
[2020-03-05] MEDS: FAMOTIDINE 20 MG TAB PO SCH (20:14)
[2020-03-06] MEDS: IBUPROFEN 600 MG TAB PO PRN (04:56)
[2020-03-06] MEDS: LABETALOL HCL 200 MG TAB PO SCH (05:03)
[2020-03-06 05:55] LABS: Hematocrit (blood only) 27.5 % (37-47); Hemoglobin 8.7 g/dL (12.0-16.0)
[2020-03-06] MEDS ORDERED: FERROUS SULFATE 325 MG TAB PO SCH (08:00)
--- NOTE | 2020-03-06 08:02 | Obstetrical Progress Note ---
Date of Service March 06, 2020 Assessment & Plan Admission and Anticipated Discharge Date Admission Date: March 03, 2020 Subjective Patient is seen and examined. She feels well, no complaints. Mild BERMEO, has not taken Tylenol yet No change in vision/ epig or RUQ pain/fever/ chills/ CP/ SOB/ N&V/ Leg pain Ambulating without dizziness Voiding without difficulty Tolerating regular diet with out N&V Bleeding is minimal Breast feeding without problems Vital Signs Temp Pulse Resp BP Pulse Ox 03/06/20 05:05 86 139/93 03/05/20 23:20 36.7 C 89 18 128/82 97 03/05/20 19:50 36.8 C 89 18 136/90 03/05/20 17:05 83 18 145/93 H 96 03/05/20 15:20 36.7 C 83 16 129/86 96 03/05/20 13:05 36.6 C 84 16 124/84 97 Lab Results 03/03/20 03/03/20 03/03/20 Range/Units 14:43 14:43 14:43 WBC 9.84 (4.8-10.8) K/uL RBC 3.66 L (4.2-5.4) M/uL Hgb 11.2 L (12.0-16.0) g/dL Hct 33.0 L (37-47) % MCV 90.2 (80-100) fL MCH 30.6 (25-34) pg MCHC 33.9 (32-36) g/dL RDW Std Deviation 44.5 (36.4-46.3) fL RDW Coeff of Rowan 13.5 (11.5-14.5) % Plt Count 287 (130-400) K/uL MPV 10.6 H (7.4-10.4) fL Immature Gran % (Auto) 0.3 % Neut % (Auto) 81.9 % Lymph % (Auto) 10.4 % [place] % (Auto) 6.7 % Eos % (Auto) 0.6 % Baso % (Auto) 0.1 % Neut # (Auto) 8.06 H (1.4-6.5) K/uL Lymph # (Auto) 1.02 L (1.2-3.4) K/uL [place] # (Auto) 0.66 H (0.11-0.59) K/uL Eos # (Auto) 0.06 (0-0.5) K/uL Baso # (Auto) 0.01 (0-0.2) K/uL Immature Gran # (Auto) 0.03 H (0.00-0.02) K/uL Cord ABG pH (7.1-7.38) Cord ABG pCO2 (39.1-73.5) mmHg Cord ABG pO2 (4.1-31.7) mmHg Cord ABG HCO3 (19.7-28.5) mmol/L Cord ABG Base Excess (-9-1.8) mEq/L Cord ABG O2 Sat (<60) % Cord VBG pH (7.20-7.44) Cord VBG pCO2 (30.4-57.2) mmHg Cord VBG pO2 (14.1-43.3) mmHg Cord VBG HCO3 (18.4-26.8) mmol/L Cord VBG Base Excess (-7.7-1.9) mEq/L Cord VBG O2 Sat (<68) % Barometric Pressure mm/Hg Blood Gas Comments Sodium 140 (136-145) mmol/L Potassium 4.0 (3.5-5.1) mmol/L Chloride 112 H (98-107) mmol/L Carbon Dioxide 21 (21-32) mmol/L Anion Gap 7.0 (3-11) BUN 9 (7-18) mg/dl Creatinine 0.67 (0.6-1.2) mg/dl Est Cr Clr Drug Dosing 137.7 ml/min Est GFR ( Amer) 138.6 Est GFR (Non-Af Amer) 119.6 BUN/Creatinine Ratio 12.7 (10-20) Glucose 78 (70-99) mg/dl Calcium 8.4 L (8.5-10.1) mg/dl Total Bilirubin 0.4 (0.2-1) mg/dl AST 11 L (15-37) U/L ALT 14 (12-78) U/L Alkaline Phosphatase 152 H (45-117) U/L Lactate Dehydrogenase 166 (84-246) U/L Total Protein 5.8 L (6.4-8.2) gm/dl Albumin 2.2 L (3.4-5.0) gm/dl Globulin 3.6 (2.5-4.0) gm/dl Albumin/Globulin Ratio 0.6 L (0.9-2) Urine Color Urine Appearance (Clear) Urine pH (4.5-7.5) Ur Specific [place] (1.000-1.030) Urine Protein (Negative) Urine Glucose (UA) (Negative) Urine Ketones (Negative) Urine Blood (Negative) Urine Nitrite (Negative) Urine Bilirubin (Negative) Urine Urobilinogen (Negative) Ur Leukocyte Esterase (Negative) Urine WBC (Auto) (0-5) /hpf Urine RBC (Auto) (0-4) /hpf U Hyaline Cast (Auto) (0-5) /lpf U Epithel Cells (Auto) (0-5) /lpf Urine Bacteria (Auto) (Negative) 03/03/20 03/03/20 03/03/20 Range/Units 20:53 20:53 Unknown WBC 10.69 (4.8-10.8) K/uL RBC 3.85 L (4.2-5.4) M/uL Hgb 11.3 L (12.0-16.0) g/dL Hct 35.4 L (37-47) % MCV 91.9 (80-100) fL MCH 29.4 (25-34) pg MCHC 31.9 L (32-36) g/dL RDW Std Deviation 45.4 (36.4-46.3) fL RDW Coeff of Rowan 13.6 (11.5-14.5) % Plt Count 288 (130-400) K/uL MPV 10.4 (7.4-10.4) fL Immature Gran % (Auto) 0.2 % Neut % (Auto) 76.1 % Lymph % (Auto) 15.3 % [place] % (Auto) 7.5 % Eos % (Auto) 0.7 % Baso % (Auto) 0.2 % Neut # (Auto) 8.13 H (1.4-6.5) K/uL Lymph # (Auto) 1.64 (1.2-3.4) K/uL [place] # (Auto) 0.80 H (0.11-0.59) K/uL Eos # (Auto) 0.08 (0-0.5) K/uL Baso # (Auto) 0.02 (0-0.2) K/uL Immature Gran # (Auto) 0.02 (0.00-0.02) K/uL Cord ABG pH (7.1-7.38) Cord ABG pCO2 (39.1-73.5) mmHg Cord ABG pO2 (4.1-31.7) mmHg Cord ABG HCO3 (19.7-28.5) mmol/L Cord ABG Base Excess (-9-1.8) mEq/L Cord ABG O2 Sat (<60) % Cord VBG pH (7.20-7.44) Cord VBG pCO2 (30.4-57.2) mmHg Cord VBG pO2 (14.1-43.3) mmHg Cord VBG HCO3 (18.4-26.8) mmol/L Cord VBG Base Excess (-7.7-1.9) mEq/L Cord VBG O2 Sat (<68) % Barometric Pressure mm/Hg Blood Gas Comments Sodium 138 (136-145) mmol/L Potassium 4.0 (3.5-5.1) mmol/L Chloride 110 H (98-107) mmol/L Carbon Dioxide 21 (21-32) mmol/L Anion Gap 7.0 (3-11) BUN 9 (7-18) mg/dl Creatinine 0.83 (0.6-1.2) mg/dl Est Cr Clr Drug Dosing 111.1 ml/min Est GFR ( Amer) 111.2 Est GFR (Non-Af Amer) 96.0 BUN/Creatinine Ratio 10.9 (10-20) Glucose 81 (70-99) mg/dl Calcium 8.7 (8.5-10.1) mg/dl Total Bilirubin 0.3 (0.2-1) mg/dl AST 14 L (15-37) U/L ALT 13 (12-78) U/L Alkaline Phosphatase 151 H (45-117) U/L Lactate Dehydrogenase (84-246) U/L Total Protein 5.8 L (6.4-8.2) gm/dl Albumin 2.2 L (3.4-5.0) gm/dl Globulin 3.6 (2.5-4.0) gm/dl Albumin/Globulin Ratio 0.6 L (0.9-2) Urine Color Dark Yellow Urine Appearance Cloudy A (Clear) Urine pH 6.0 (4.5-7.5) Ur Specific [place] 1.025 (1.000-1.030) Urine Protein 1+ H (Negative) Urine Glucose (UA) Negative (Negative) Urine Ketones Trace H (Negative) Urine Blood 2+ H (Negative) Urine Nitrite Negative (Negative) Urine Bilirubin Negative (Negative) Urine Urobilinogen Negative (Negative) Ur Leukocyte Esterase Negative (Negative) Urine WBC (Auto) 1-5 (0-5) /hpf Urine RBC (Auto) 5-10 H (0-4) /hpf U Hyaline Cast (Auto) 5-10 H (0-5) /lpf U Epithel Cells (Auto) >30 H (0-5) /lpf Urine Bacteria (Auto) 1+ H (Negative) 03/04/20 03/04/20 03/04/20 Range/Units 21:05 21:05 22:21 WBC (4.8-10.8) K/uL RBC (4.2-5.4) M/uL Hgb 12.0 (12.0-16.0) g/dL Hct 37.1 (37-47) % MCV (80-100) fL MCH (25-34) pg MCHC (32-36) g/dL RDW Std Deviation (36.4-46.3) fL RDW Coeff of Rowan (11.5-14.5) % Plt Count (130-400) K/uL MPV (7.4-10.4) fL Immature Gran % (Auto) % Neut % (Auto) % Lymph % (Auto) % [place] % (Auto) % Eos % (Auto) % Baso % (Auto) % Neut # (Auto) (1.4-6.5) K/uL Lymph # (Auto) (1.2-3.4) K/uL [place] # (Auto) (0.11-0.59) K/uL Eos # (Auto) (0-0.5) K/uL Baso # (Auto) (0-0.2) K/uL Immature Gran # (Auto) (0.00-0.02) K/uL Cord ABG pH 7.22 (7.1-7.38) Cord ABG pCO2 55 (39.1-73.5) mmHg Cord ABG pO2 28 (4.1-31.7) mmHg Cord ABG HCO3 22 (19.7-28.5) mmol/L Cord ABG Base Excess -6.3 (-9-1.8) mEq/L Cord ABG O2 Sat < 60.0 (<60) % Cord VBG pH 7.34 (7.20-7.44) Cord VBG pCO2 38 (30.4-57.2) mmHg Cord VBG pO2 36 (14.1-43.3) mmHg Cord VBG HCO3 20 (18.4-26.8) mmol/L Cord VBG Base Excess -5.1 (-7.7-1.9) mEq/L Cord VBG O2 Sat 74.0 H (<68) % Barometric Pressure 730.0 729.9 mm/Hg Blood Gas Comments CRUMP CRUMP Sodium (136-145) mmol/L Potassium (3.5-5.1) mmol/L Chloride (98-107) mmol/L Carbon Dioxide (21-32) mmol/L Anion Gap (3-11) BUN (7-18) mg/dl Creatinine (0.6-1.2) mg/dl Est Cr Clr Drug Dosing ml/min Est GFR ( Amer) Est GFR (Non-Af Amer) BUN/Creatinine Ratio (10-20) Glucose (70-99) mg/dl Calcium (8.5-10.1) mg/dl Total Bilirubin (0.2-1) mg/dl AST (15-37) U/L ALT (12-78) U/L Alkaline Phosphatase (45-117) U/L Lactate Dehydrogenase (84-246) U/L Total Protein (6.4-8.2) gm/dl Albumin (3.4-5.0) gm/dl Globulin (2.5-4.0) gm/dl Albumin/Globulin Ratio (0.9-2) Urine Color Urine Appearance (Clear) Urine pH (4.5-7.5) Ur Specific [place] (1.000-1.030) Urine Protein (Negative) Urine Glucose (UA) (Negative) Urine Ketones (Negative) Urine Blood (Negative) Urine Nitrite (Negative) Urine Bilirubin (Negative) Urine Urobilinogen (Negative) Ur Leukocyte Esterase (Negative) Urine WBC (Auto) (0-5) /hpf Urine RBC (Auto) (0-4) /hpf U Hyaline Cast (Auto) (0-5) /lpf U Epithel Cells (Auto) (0-5) /lpf Urine Bacteria (Auto) (Negative) 03/05/20 03/06/20 Range/Units 06:39 05:28 WBC 14.27 H (4.8-10.8) K/uL RBC 3.30 L (4.2-5.4) M/uL Hgb 9.9 L 8.7 L (12.0-16.0) g/dL Hct 30.2 L 27.5 L (37-47) % MCV 91.5 (80-100) fL MCH 30.0 (25-34) pg MCHC 32.8 (32-36) g/dL RDW Std Deviation 45.4 (36.4-46.3) fL RDW Coeff of Rowan 13.7 (11.5-14.5) % Plt Count 251 (130-400) K/uL MPV 10.7 H (7.4-10.4) fL Immature Gran % (Auto) % Neut % (Auto) % Lymph % (Auto) % [place] % (Auto) % Eos % (Auto) % Baso % (Auto) % Neut # (Auto) (1.4-6.5) K/uL Lymph # (Auto) (1.2-3.4) K/uL [place] # (Auto) (0.11-0.59) K/uL Eos # (Auto) (0-0.5) K/uL Baso # (Auto) (0-0.2) K/uL Immature Gran # (Auto) (0.00-0.02) K/uL Cord ABG pH (7.1-7.38) Cord ABG pCO2 (39.1-73.5) mmHg Cord ABG pO2 (4.1-31.7) mmHg Cord ABG HCO3 (19.7-28.5) mmol/L Cord ABG Base Excess (-9-1.8) mEq/L Cord ABG O2 Sat (<60) % Cord VBG pH (7.20-7.44) Cord VBG pCO2 (30.4-57.2) mmHg Cord VBG pO2 (14.1-43.3) mmHg Cord VBG HCO3 (18.4-26.8) mmol/L Cord VBG Base Excess (-7.7-1.9) mEq/L Cord VBG O2 Sat (<68) % Barometric Pressure mm/Hg Blood Gas Comments Sodium (136-145) mmol/L Potassium (3.5-5.1) mmol/L Chloride (98-107) mmol/L Carbon Dioxide (21-32) mmol/L Anion Gap (3-11) BUN (7-18) mg/dl Creatinine (0.6-1.2) mg/dl Est Cr Clr Drug Dosing ml/min Est GFR ( Amer) Est GFR (Non-Af Amer) BUN/Creatinine Ratio (10-20) Glucose (70-99) mg/dl Calcium (8.5-10.1) mg/dl Total Bilirubin (0.2-1) mg/dl AST (15-37) U/L ALT (12-78) U/L Alkaline Phosphatase (45-117) U/L Lactate Dehydrogenase (84-246) U/L Total Protein (6.4-8.2) gm/dl Albumin (3.4-5.0) gm/dl Globulin (2.5-4.0) gm/dl Albumin/Globulin Ratio (0.9-2) Urine Color Urine Appearance (Clear) Urine pH (4.5-7.5) Ur Specific [place] (1.000-1.030) Urine Protein (Negative) Urine Glucose (UA) (Negative) Urine Ketones (Negative) Urine Blood (Negative) Urine Nitrite (Negative) Urine Bilirubin (Negative) Urine Urobilinogen (Negative) Ur Leukocyte Esterase (Negative) Urine WBC (Auto) (0-5) /hpf Urine RBC (Auto) (0-4) /hpf U Hyaline Cast (Auto) (0-5) /lpf U Epithel Cells (Auto) (0-5) /lpf Urine Bacteria (Auto) (Negative) PE: General: Alert, orientedx3, NAD Abd: soft, NT, fundus firm, below Umbilicus Perineum intact, Lochia rubra minimal Ext; NT, 1+/1+ edema, No clonus BL Homans sign negative BL AP: 30 yo s/p , ppd# 2 VSS Afebrile doing well BP under control with Labetalol Anemic: start iron Desires D/C today Continue routine care Tylenol for BERMEO and reevaluate All questions were answered D/C home and f/u in office in a week Results & Data ([facility]) Vital Signs (Past 12 Hours) Vital Signs Temp Pulse Resp BP Pulse Ox 03/06/20 05:05 86 139/93 03/05/20 23:20 36.7 C 89 18 128/82 97
[2020-03-06] MEDS: DOCUSATE SODIUM 100 MG CAP PO SCH (08:05)
[2020-03-06] MEDS: PRENATAL VITAMIN 1 TAB PO SCH (08:05)
[2020-03-06] MEDS: VALACYCLOVIR HCL 500 MG TABLET PO SCH (08:05)
[2020-03-06 08:26] LABS: Basophils # (auto) 0.03 K/uL (0-0.2); Basophils % (auto) 0.3 %; Eosinophils # (auto) 0.12 K/uL (0-0.5); Eosinophils % (auto) 1.1 %; Hematocrit (blood only) 29.7 % (37-47); Hemoglobin 9.7 g/dL (12.0-16.0); Immature Granulocytes # (auto) 0.04 K/uL (0.00-0.02); Immature Granulocytes % (auto) 0.4 %; Lymphocytes # (auto) 1.37 K/uL (1.2-3.4); Lymphocytes % (auto) 12.7 %; Mean Corpuscular Hemoglobin 30.1 pg (25-34); Mean Corpuscular Hgb Conc 32.7 g/dL (32-36); Mean Corpuscular Volume 92.2 fL (80-100); Mean Platelet Volume 10.3 fL (7.4-10.4); Monocytes # (auto) 0.77 K/uL (0.11-0.59); Monocytes % (auto) 7.2 %; Neutrophils # (auto) 8.43 K/uL (1.4-6.5); Neutrophils % (auto) 78.3 %; Platelet Count 244 K/uL (130-400); RDW Coefficient of Variation 14.1 % (11.5-14.5); RDW Standard Deviation 46.9 fL (36.4-46.3); Red Blood Count 3.22 M/uL (4.2-5.4); White Blood Count 10.76 K/uL (4.8-10.8)
--- NOTE | 2020-03-06 08:47 | Obstetrical Progress Note ---
Date of Service March 06, 2020 Assessment & Plan Admission and Anticipated Discharge Date Admission Date: March 03, 2020 Subjective Patient is reevaluated She feels well, and desires to be discharged today after baby will be circumcised Discussed when to call Results & Data ([facility]) Vital Signs (Past 12 Hours) Vital Signs Temp Pulse Resp BP Pulse Ox 03/06/20 05:05 86 139/93 03/05/20 23:20 36.7 C 89 18 128/82 97
== END 2020-03-06 14:01 | disposition home or self-care (01) | DRG 807 ==
LOC: 4S1 13:17 → 4S2 03-05 02:33